=== PATIENT | male | born 1960 | race Caucasian/White ===

== ENCOUNTER 2019-05-25 11:07 | Emergency (ER) | payer OTHER, BC ==
[~2019-05-25] VITALS: Ht 165.1 cm; Wt 78.0 kg
[2019-05-25] MEDS ORDERED: IBUPROFEN 600MG TABLET PO STA (11:53)
[2019-05-25] MEDS ORDERED: LIDOCAINE 1%/EPI 1:100,000 10 ML VIAL IJ ONE (12:00)
[2019-05-25] MEDS ORDERED: LIDOCAINE HCL/PF 1% 10 MG/ML 5ML VIAL IJ ONE (12:00)
[2019-05-25 12:20] LABS: BASOPHILS % 0.7 % (0.0-2.0); EOSINOPHILS % 1.6 % (0.0-5.0); HEMATOCRIT. 39.7 % (42.0-52.0); HEMOGLOBIN. 13.7 g/dL (14.0-18.0); LYMPHOCYTES % 16.5 % (20.0-50.0); MEAN CORPUSCULAR HEMOGLOBIN 31.4 pg (28.0-32.0); MEAN CORPUSCULAR VOLUME 90.9 fL (80.0-94.0); MEAN PLATELET VOLUME 8.2 fl (7.4-10.4); MONOCYTES % 8.7 % (2.0-8.0); NEUTROPHILS % 72.5 % (40.0-76.0); PLATELET 263 x1000/uL (130-400); RED BLOOD CELL COUNT 4.37 mill/uL (4.7-6.1); RED CELL DISTRIBUTION WIDTH 14.1 % (11.6-14.6)
[2019-05-25 12:25] LABS: CHLORIDE 106 mEq/L (98-107)
[2019-05-25] MEDS ORDERED: LIDOCAINE HCL/EPINEPHRINE 1%-EPI 1:100,000 20 ML VIAL IJ SCH (12:30)
[2019-05-25] MEDS ORDERED: ASPIRIN 325MG EC TABLET PO ONE (14:15)
[2019-05-25] MEDS ORDERED: ASPIRIN 81MG TABLET PO ONE (17:15)
[2019-05-25 17:33] VITALS: BP 160/82
== END 2019-05-25 17:47 | disposition short-term general hospital (02) ==
LOC: ER 11:07 → CANBEDREQ 20:42
DX: S01.112A Laceration without foreign body of left eyelid and periocular area, initial encounter (principal); R55 Syncope and collapse; W18.39XA Other fall on same level, initial encounter; Y93.89 Activity, other specified; Y92.89 Other specified places as the place of occurrence of the external cause; Y99.8 Other external cause status; I10 Essential (primary) hypertension
CPT/HCPCS: 36415; 70450; 70486; 71045; 80053; 83880; 84484; 85025; 93005; 99285; J3490; Z7610